=== PATIENT | male | born 1990 | race Two or more races ===

== ENCOUNTER 2024-08-05 12:20 | Emergency (ER) | payer MEDICAID ==
[~2024-08-05] VITALS: Ht 170.2 cm; Wt 72.0 kg
[2024-08-05 12:35] VITALS: O2SAT 99
[2024-08-05 12:55] VITALS: BP 142/82; PULSE 55; RESP 18; TEMP 98.8; O2SAT 100
[2024-08-05] MEDS ORDERED: ACET-2708 MT (15:28)
== END 2024-08-05 15:38 | disposition home or self-care (01) ==
LOC: ER 12:20
DX: S09.90XA Unspecified injury of head, initial encounter (principal); Z98.890 Other specified postprocedural states; W22.8XXA Striking against or struck by other objects, initial encounter; Y93.89 Activity, other specified; Y92.89 Other specified places as the place of occurrence of the external cause; Y99.8 Other external cause status
CPT/HCPCS: 99284

== ENCOUNTER 2025-02-20 13:26 | Emergency (ER) | payer MEDICAID ==
[~2025-02-20] VITALS: Ht 172.7 cm; Wt 71.6 kg
[~2025-02-20 13:26] MED LIST: ACET-2708 MT
[2025-02-20 13:33] VITALS: TEMP 36.9; O2SAT 99
[2025-02-20] MEDS ORDERED: METH-653 MT (14:23)
[2025-02-20] MEDS: TETANUS, DIPHTHERIA, PERTUSSIS VAC/PF 0.5ML (>10YR OLD) IM ONE (14:47)
[2025-02-20 14:51] VITALS: TEMP 97.9
[2025-02-20] MEDS: ACETAMINOPHEN 325MG TABLET PO ONE (14:51)
[2025-02-20 15:27] VITALS: BP 130/70; PULSE 75; RESP 14; O2SAT 98
== END 2025-02-20 15:30 | disposition home or self-care (01) ==
LOC: ER 13:26
DX: S42.401A Unspecified fracture of lower end of right humerus, initial encounter for closed fracture (principal); S06.9X1A Unspecified intracranial injury with loss of consciousness of 30 minutes or less, initial encounter; S00.83XA Contusion of other part of head, initial encounter; V49.9XXA Car occupant (driver) (passenger) injured in unspecified traffic accident, initial encounter; Y93.89 Activity, other specified; Y92.410 Unspecified street and highway as the place of occurrence of the external cause; Y99.8 Other external cause status
CPT/HCPCS: 73060; 90471; 90715; 99291; A4565